=== PATIENT | female | born 1970 | race African-American/Black ===

== ENCOUNTER 2021-12-18 13:12 | Inpatient (IN) | payer BC, SELFPAY ==
[2021-12-18] MEDS ORDERED: Acetaminophen 325 MG TAB PO PRN (14:02)
[2021-12-18] MEDS ORDERED: Ondansetron PF 4 MG/2 ML Vial IVP PRN (14:02)
[2021-12-18] MEDS ORDERED: Lorazepam 2 MG/ML VIAL SLOW IVP PRN (14:07)
[2021-12-18] MEDS ORDERED: Lactated Ringer's 1,000 ML IV SCH (14:15)
[2021-12-18] MEDS ORDERED: Sodium Bicarbonate 50 MEQ, Admixture Fee 1 EACH in Sodium Chloride 0.45% 1,000 ML IV SCH (15:00)
[2021-12-18] MEDS ORDERED: Potassium Bicarbonate/Cit Ac 25 MEQ TAB PO SCH (15:00)
[2021-12-18 15:05] LABS: Alcohol Less than 10 mg/dL (Less than 10)
[2021-12-18 15:07] LABS: Magnesium 1.2 mg/dL (1.6-2.6)
[2021-12-18 15:13] LABS: Troponin I 0.075 ng/mL (< 0.028)
[2021-12-18 15:16] LABS: Phosphorus 1.9 mg/dL (2.3-4.7)
[2021-12-18] MEDS ORDERED: Enoxaparin Sodium 40 MG/0.4 ML SYRINGE SC SCH (16:00)
[2021-12-18 17:10] LABS: Amphetamine Not Detected (NotDetected); Barbiturates Screen Not Detected (NotDetected); Benzodiazepine Screen Not Detected (NotDetected); Cocaine Metabolite Screen Detected (NotDetected); Methadone Not Detected (NotDetected); Methamphetamine Not Detected (NotDetected); Opiate Screen Detected (NotDetected); Oxycodone Screen Not Detected (NotDetected); Phencyclidine (PCP) Not Detected (NotDetected); THC/Cannabinoid Screen Not Detected (NotDetected); Tricyclic Screen Not Detected (NotDetected)
[2021-12-18] MEDS: PHOS-NAK 1 PKT PACK PO SCH ×2 (19:26→20:46)
[2021-12-18] MEDS: Magnesium 2 GM/50 ML(in water) 2 GM in Premix Bag 1 BAG IVPB SCH ×2 (19:26→20:47)
[2021-12-18 19:52] VITALS: BMI 14.4
[2021-12-18] MEDS: Metoprolol Tartrate 25 MG TAB PO SCH (20:47)
[2021-12-18] MEDS: Famotidine 20 MG TAB PO SCH (20:47)
[2021-12-18 21:17] LABS: Troponin I 0.052 ng/mL (< 0.028)
[2021-12-19] MEDS: PHOS-NAK 1 PKT PACK PO SCH ×2 (01:54→06:02)
[2021-12-19 04:59] LABS: #Monocytes 0.2 10x3/uL (0.0-1.1); #Neutrophils 2.3 10x3/uL (1.5-8.4); %Basophils 0.9 % (0.0-2.0); %Eosinophils 0.9 % (0.0-6.0); %Lymphocytes 23.4 % (18.0-47.0); %Monocytes 6.5 % (0.0-10.0); %Neutrophils 67.7 % (40.0-75.0); Mean Corpuscular HGB CONC 35.5 g/dL (32.0-36.0); Mean Corpuscular Hemoglobin 35.5 pg (27.0-33.0); Mean Platelet Volume 12.2 fl (7.4-10.4); Platelet Count 117 10x3/uL (150-450); RBC Distribution Width 14.7 % (11.5-14.5); Red Blood Cell (RBC) Count 2.82 10x6/uL (3.90-5.03); White Blood Cell (WBC) Count 3.4 10x3/uL (3.5-10.5)
[2021-12-19 05:13] LABS: Anion Gap 14 mmol/L (10-20); BUN (Urea Nitrogen) 5 mg/dL (9.8-20.1); Calc. Creatinine Clearance 51 mL/min (70-130); Calcium 8.5 mg/dL (7.8-10.44); Carbon Dioxide 34 mmol/L (22-29); Chloride 93 mmol/L (98-107); Glucose 103 mg/dL (70-105); Sodium 138 mmol/L (136-145)
[2021-12-19 05:27] LABS: Phosphorus 2.6 mg/dL (2.3-4.7)
[2021-12-19 06:00] LABS: Platelet Morphology Comment Appears Decreased; RBC Morphology Normal
[2021-12-19] MEDS ORDERED: Enoxaparin Sodium 40 MG/0.4 ML SYRINGE SC SCH (09:00)
[2021-12-19] MEDS: Metoprolol Tartrate 25 MG TAB PO SCH ×2 (09:15→21:39)
[2021-12-19] MEDS: Thiamine 100 MG TAB PO SCH (09:15)
[2021-12-19] MEDS: Famotidine 20 MG TAB PO SCH ×2 (09:16→21:39)
[2021-12-19] MEDS: Multivit, Therapeutic 1 TAB PO SCH (09:16)
[2021-12-19] MEDS: cefTRIAXone\\ROCEPHIN 1 GM in Sodium Chloride 0.9% 100 ML IVPB SCH (09:16)
[2021-12-19] MEDS: Folic Acid 1 MG TAB PO SCH (09:16)
[2021-12-19] MEDS: Enoxaparin Sodium 30 MG/0.3 ML SYRINGE SC SCH (09:16)
[2021-12-19] MEDS ORDERED: Potassium Chloride 20 MEQ TAB PO SCH (13:30)
[2021-12-19] MEDS ORDERED: Electrolyte Replacement Protocol 1 EACH FS PRN (13:30)
[2021-12-19 16:03] LABS: SARS-CoV-2 PCR by NAA Not Detected (NotDetected)
[2021-12-19 20:25] LABS: Potassium 2.7 mmol/L (3.5-5.1)
[2021-12-19] MEDS: Potassium Chloride 20 MEQ in Premix Bag 1 BAG IVPB SCH (21:32)
[2021-12-20] MEDS: Potassium Chloride 20 MEQ in Premix Bag 1 BAG IVPB SCH (00:36)
[2021-12-20] MEDS ORDERED: traMADol HCl 50 MG TAB PO SCH (04:30)
[2021-12-20 05:17] LABS: #Monocytes 0.3 10x3/uL (0.0-1.1); #Neutrophils 1.8 10x3/uL (1.5-8.4); %Basophils 0.7 % (0.0-2.0); %Lymphocytes 29.5 % (18.0-47.0); %Monocytes 8.4 % (0.0-10.0); %Neutrophils 60.1 % (40.0-75.0); Hemoglobin 9.9 g/dL (12.0-15.5); Mean Corpuscular HGB CONC 35.1 g/dL (32.0-36.0); Mean Corpuscular Hemoglobin 35.2 pg (27.0-33.0); Mean Corpuscular Volume 100.4 fl (81.6-98.3); Mean Platelet Volume 12.3 fl (7.4-10.4); Platelet Count 131 10x3/uL (150-450); RBC Distribution Width 14.9 % (11.5-14.5); Red Blood Cell (RBC) Count 2.81 10x6/uL (3.90-5.03)
[2021-12-20 05:41] LABS: ALT (SGPT) 13 U/L (8-55); AST (SGOT) 59 U/L (5-34); Albumin 3.4 g/dL (3.5-5.0); Alkaline Phosphatase 52 U/L (40-110); Anion Gap 17 mmol/L (10-20); BUN (Urea Nitrogen) Less than 4 mg/dL (9.8-20.1); Bilirubin, Total 1.7 mg/dL (0.2-1.2); Calc. Creatinine Clearance 51 mL/min (70-130); Calcium 8.7 mg/dL (7.8-10.44); Carbon Dioxide 29 mmol/L (22-29); Chloride 99 mmol/L (98-107); Globulin 2.8 g/dL (2.4-3.5); Glucose 77 mg/dL (70-105); Potassium 3.7 mmol/L (3.5-5.1); Protein, Total 6.2 g/dL (6.0-8.3); Sodium 141 mmol/L (136-145)
[2021-12-20] MEDS: Enoxaparin Sodium 30 MG/0.3 ML SYRINGE SC SCH (09:22)
[2021-12-20] MEDS: Famotidine 20 MG TAB PO SCH (09:22)
[2021-12-20] MEDS: Metoprolol Tartrate 25 MG TAB PO SCH (09:22)
[2021-12-20] MEDS: Thiamine 100 MG TAB PO SCH (09:22)
[2021-12-20] MEDS: Folic Acid 1 MG TAB PO SCH (09:22)
[2021-12-20] MEDS: Multivit, Therapeutic 1 TAB PO SCH (09:22)
[2021-12-20] MEDS ORDERED: cefTRIAXone\\ROCEPHIN 1 GM VIAL ONE (10:16)
[2021-12-20] MEDS: cefTRIAXone\\ROCEPHIN 1 GM in Sodium Chloride 0.9% 100 ML IVPB SCH (10:36)
[2021-12-20] MEDS ORDERED: Magnesium 2 GM/50 ML(in water) 2 GM in Premix Bag 1 BAG IVPB SCH (12:30)
[2021-12-20 12:48] VITALS: BP 159/105; TEMP 97.1
== END 2021-12-20 16:15 | disposition home or self-care (01) | DRG 689 ==
LOC: CSHTELE 13:12
PROVIDERS: ADMIT Internal Medicine; ATTEND Internal Medicine
DX: N30.00 Acute cystitis without hematuria (principal); E43 Unspecified severe protein-calorie malnutrition; I21.A1 Myocardial infarction type 2; R64 Cachexia; Z68.1 Body mass index [BMI] 19.9 or less, adult; E87.2 Acidosis; I10 Essential (primary) hypertension; E87.6 Hypokalemia; E83.42 Hypomagnesemia; E83.39 Other disorders of phosphorus metabolism; R53.81 Other malaise; G62.9 Polyneuropathy, unspecified; F10.20 Alcohol dependence, uncomplicated; Z20.822 Contact with and (suspected) exposure to COVID-19; Z79.899 Other long term (current) drug therapy
CPT/HCPCS: 36415; 80048; 80053; 80306; 80307; 82607; 82746; 83735; 84100; 84132; 85025; 93306; J0696; J1650; J3475; J3480; J3490; U0003; U0005